=== PATIENT | female | born 1985 | race Hispanic/Latino ===

== ENCOUNTER 2021-01-07 12:36 | Emergency (ER) | payer OTHER, SELFPAY ==
[2021-01-07] MEDS ORDERED: Sodium Chloride 0.9% 1,000 ML ONE (13:34)
[2021-01-07] MEDS ORDERED: Metoclopramide HCl 10 MG/2 ML VIAL ONE ×2 (13:34→15:19)
[2021-01-07] MEDS ORDERED: diphenhydrAMINE 50 MG/ML VIAL ONE (13:34)
[2021-01-07 14:38] LABS: Bilirubin Negative (Negative); Blood, Urine Negative (Negative); Clarity Slightly Cloudy (Clear); Glucose, Urine (Dipstick) Negative (Negative); Ketone, Urine Negative (Negative); Leukocyte Negative (Negative); Nitrite Negative (Negative); Protein, Urine (Dipstick) Negative (Neg-Trace); Specific Gravity, Urine 1.015 (1.005-1.030); Urobilinogen 0.2 mg/dL (Less than 2); pH, Urine 7.5 (5.0-9.0)
[2021-01-07] MEDS ORDERED: Sodium Chloride 0.9% 0 ML ONE (15:19)
[2021-01-07] MEDS ORDERED: Sodium Chloride 0.9% 100 ML ONE (15:20)
[2021-01-08 17:21] LABS: SARS-CoV-2 PCR by NAA Not Detected (NotDetected)
== END 2021-01-07 16:29 | disposition home or self-care (01) ==
LOC: NAV ERS 12:36
DX: B34.9 Viral infection, unspecified (principal); G43.909 Migraine, unspecified, not intractable, without status migrainosus; Z20.822 Contact with and (suspected) exposure to COVID-19
CPT/HCPCS: 81003; 96365; 96366; 96375; J1200; J2765; J3490; J7050; U0003; U0005

== ENCOUNTER 2021-06-02 17:33 | Emergency (ER) | payer OTHER ==
[2021-06-02] MEDS ORDERED: Metoclopramide HCl 10 MG/2 ML VIAL ONE (18:12)
[2021-06-02] MEDS ORDERED: diphenhydrAMINE 25 MG CAP ONE ×2 (18:12→18:18)
[2021-06-02] MEDS ORDERED: Sodium Chloride 0.9% 1,000 ML ONE (18:13)
[2021-06-02 19:55] LABS: #Basophils 0.1 thou/uL (0.0-0.2); #Lymphocytes 1.6 thou/uL (1.20-3.40); #Monocytes 0.4 thou/uL (0.11-0.59); #Neutrophils 6.9 thou/uL (1.40-6.50); %Eosinophils 0.1 % (0.0-10.0); %Lymphocytes 17.9 % (21.0-51.0); %Monocytes 4.5 % (0.0-10.0); %Neutrophils 76.5 % (42.0-75.0); BHCG - Serum Negative (NEGATIVE); Hemoglobin 12.7 g/dL (12.0-16.0); Mean Corpuscular HGB CONC 32.7 g/dL (32.0-36.0); Mean Corpuscular Hemoglobin 30.2 pg (27.0-31.0); Mean Corpuscular Volume 92.3 fL (78.0-98.0); Mean Platelet Volume 6.7 fL (7.4-10.4); Platelet Count 312 thou/uL (130-400); Pregs Control Bar Appear? YES (CONTROL BAR); RBC Distribution Width 12.2 % (11.5-14.5); Red Blood Cell (RBC) Count 4.21 mill/uL (4.20-5.40)
[2021-06-02] MEDS ORDERED: Ketorolac Tromethamine 30 MG/ML VIAL ONE (20:12)
[2021-06-02 20:18] LABS: ALT (SGPT) 12 U/L (8-55); AST (SGOT) 12 U/L (5-34); Albumin 3.9 g/dL (3.5-5.0); Alkaline Phosphatase 61 U/L (40-110); Anion Gap 11 mmol/L (10-20); BUN (Urea Nitrogen) 8 mg/dL (7.0-18.7); Bilirubin, Total 0.4 mg/dL (0.2-1.2); Calc. Creatinine Clearance 0 mL/min (70-130); Carbon Dioxide 21 mmol/L (22-29); Chloride 109 mmol/L (98-107); Globulin 3.3 g/dL (2.4-3.5); Glucose 118 mg/dL (70-105); Lipase 29 U/L (8-78); Potassium 3.8 mmol/L (3.5-5.1); Protein, Total 7.2 g/dL (6.0-8.3); Sodium 137 mmol/L (136-145)
== END 2021-06-02 21:13 | disposition home or self-care (01) ==
LOC: NAV ERS 17:33
DX: G43.909 Migraine, unspecified, not intractable, without status migrainosus (principal); R11.2 Nausea with vomiting, unspecified; R19.7 Diarrhea, unspecified
CPT/HCPCS: 80053; 83690; 84703; 85025; 96374; 96375; J1885; J2765; J7050